=== PATIENT | female | born 1990 | race African-American/Black ===

== ENCOUNTER 2024-05-17 12:53 | Inpatient (IN) | payer OTHER ==
[2024-05-17 13:34] VITALS: BMI 24.2
[2024-05-17] MEDS ORDERED: POLYETHYLENE GLYCOL (HEALTHYLAX) 3350 17 GM PACKET PO PRN (13:46)
[2024-05-17] MEDS ORDERED: guaiFENesin 600 MG TABLET.ER (FP) PO PRN (13:46)
[2024-05-17] MEDS ORDERED: IBUPROFEN 600 MG TABLET (FP) PO PRN (13:46)
[2024-05-17] MEDS ORDERED: MAG HYDROX/AL HYDROX/SIMETH 30 ML UNIT-DOSE CUP PO PRN (13:46)
[2024-05-17] MEDS ORDERED: IBUPROFEN 400 MG TABLET (FP) PO PRN (13:46)
[2024-05-17] MEDS ORDERED: MAGNESIUM HYDROX 2400MG/30ML ORAL SUSPENSION 30 ML CUP PO PRN (13:46)
[2024-05-17] MEDS ORDERED: LOPERAMIDE HCL 2 MG CAPSULE PO PRN (13:46)
[2024-05-17] MEDS ORDERED: NALOXONE (NARCAN) HCL 4 MG/0.1 ML SPRAY NS PRN (13:46)
[2024-05-17] MEDS ORDERED: BENZONATATE 200 MG CAPSULE PO PRN (13:46)
[2024-05-17] MEDS ORDERED: ACETAMINOPHEN 325 MG TABLET (FP) PO PRN (13:46)
[2024-05-17] MEDS: NICOTINE 14 MG/24 HOURS TOPICAL PATCH TD SCH (15:35)
[2024-05-17] MEDS: PRENATAL VITAMINS W/ FOLIC ACID TABLET (FP) PO SCH (16:36)
[2024-05-17] MEDS ORDERED: NICOTINE 14 MG/24 HOURS TOPICAL PATCH TD ONE (17:03)
[2024-05-17] MEDS ORDERED: PRENATAL VITAMINS W/ FOLIC ACID TABLET (FP) PO ONE (17:04)
[2024-05-17] MEDS: hydrOXYzine PAMOATE 25 MG CAPSULE (FP) PO PRN (22:33)
[2024-05-17] MEDS: MELATONIN 5 MG TABLETS PO SCH (22:33)
[2024-05-17] MEDS: THIAMINE 100 MG TABLET PO SCH (22:33)
[2024-05-18 06:21] VITALS: RESP 18
[2024-05-18] MEDS: ARIPiprazole 10 MG TABLET PO SCH (10:45)
[2024-05-18 11:41] LABS: HEMATOCRIT 31.9 % (32.4-45.2); HEMOGLOBIN 9.9 GM/dL (10.7-15.3); MEAN CELL VOLUME 80.7 fl (80-96); MEAN PLT VOLUME 7.5 fl (7.5-11.1); PLATELET COUNT 588 10^3/uL (134-434); POTASSIUM 4.6 mmol/L (3.5-5.1); RBC 3.96 M/mm3 (3.60-5.2); RDW 18.6 % (11.6-15.6)
[2024-05-18 11:48] LABS: BLOOD UREA NITROGEN 9.6 mg/dL (7-18); CALCIUM 9.4 mg/dL (8.5-10.1)
[2024-05-18 11:51] LABS: BILIRUBIN,TOTAL 0.3 mg/dL (0.2-1); CREATININE 0.8 mg/dL (0.55-1.3)
[2024-05-18 11:52] LABS: TOT PROT 7.4 g/dl (6.4-8.2)
[2024-05-18] MEDS: BENZOCAINE/MENTHOL (CHLORASEPTIC ) LOZENGE MM PRN (12:05)
[2024-05-18 12:34] LABS: SYPHILIS W/ RPR CONF REACTIVE (NONREACTIVE)
[2024-05-18 22:11] LABS: EPI CELLS >36 /uL (0-25.1); HYALINE CASTS 1 /uL (0-3.1); PH,URINE 6.5 (5.0-8.0); URINE APPEARANCE CLOUDY; URINE BACTERIA >9,000 /uL (0-1359); URINE BILIRUBIN NEGATIVE (NEGATIVE); URINE COLOR YELLOW; URINE GLUCOSE (UA) NEGATIVE (NEGATIVE); URINE KETONE NEGATIVE (NEGATIVE); URINE LEUK ESTERASE TRACE (NEGATIVE); URINE NITRITE POSITIVE (NEGATIVE); URINE PROTEIN NEGATIVE (NEGATIVE); URINE RBC 2 /uL (0-23.9); URINE UROBILINOGEN 0.2 mg/dL (0.2-1.0); URINE WBC 91 /uL (0-25.8)
[2024-05-19 06:40] VITALS: BP 113/64; PULSE 106; TEMP 97.5
[2024-05-19] MEDS: NALOXONE (NYS OPIOID OVERDOSE PROGRAM) 4 MG/0.1 ML SPRAY NS SCH (11:14)
[2024-05-25] MEDS ORDERED: risperiDONE MICROSPHERES 37.5 MG/2 ML ML IM ONE (10:00)
== END 2024-05-19 11:35 | disposition home or self-care (01) | DRG 772 ==
LOC: YASAS 12:53 → Y3NR 16:34
PROVIDERS: ADMIT Psychiatry & Neurology Pain Medicine; ATTEND Psychiatry & Neurology Pain Medicine
PROC: HZ42ZZZ Group Counseling for Substance Abuse Treatment, Cognitive-Behavioral (ICD-10-PCS; principal; 2024-05-17)
DX: F14.20 Cocaine dependence, uncomplicated (principal); F16.20 Hallucinogen dependence, uncomplicated; F17.210 Nicotine dependence, cigarettes, uncomplicated; F25.1 Schizoaffective disorder, depressive type; F43.10 Post-traumatic stress disorder, unspecified
CPT/HCPCS: 36415; 80053; 81003; 85027; 86593; 86780; 86803; 93005; 93010